=== PATIENT | male | born 1990 | race Caucasian/White ===

== ENCOUNTER 2018-09-27 06:01 | Inpatient (IN) ==
[2018-09-27] MEDS ORDERED: Mag Hydrox/Al Hydrox/Simeth 30 ML UDC PO PRN (06:51)
[2018-09-27] MEDS ORDERED: *HR* LORazepam 1 MG TABLET PO PRN (06:51)
[2018-09-27] MEDS ORDERED: hydrOXYzine pamoate 25 MG CAPSULE PO PRN (06:51)
[2018-09-27] MEDS ORDERED: Ibuprofen 400 MG TABLET PO PRN (06:51)
[2018-09-27] MEDS ORDERED: *HR* LORazepam 2 MG/ML VIAL IM PRN (06:51)
[2018-09-27] MEDS ORDERED: traZODone 50 MG TABLET PO PRN (06:51)
[2018-09-27] MEDS ORDERED: Haloperidol Lactate 5 MG/ML VIAL IM PRN (06:51)
[2018-09-27] MEDS ORDERED: MOM Conc 10 ML UD.LIQ PO PRN (06:51)
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
--- NOTE | 2018-09-28 13:32 | Psychiatry Progress Note ---
Date of Encounter: 09/28/18 Time of Encounter: 12:50 Subjective Interval history: Patient states eh is "much better". He denies any SI and doesn't think that he ever was serious about it. He talks about cutting on himself previously and how it used to be a bad habit of how he would deal with stress. He just reverted back to that habit. He states that there is stress at home, but things are getting better regarding his home life and family. He has no desire to take medications, but does want a therapist to work through some issues. He does not feel depressed, but more anxious. He is bored here on the unit and does not find it productive in him dealing with his issues. I discussed with him that he may want to try some medications while he was here, and the alternative purpose of him being here is to monitor him and keep him safe. Discussed wanting and needing to touch base with his and talk about safety issues at home and her concerns. Results - Vital Signs Vital Signs: Temp Pulse Resp BP Pulse Ox 98 F 93 14 131/90 98 09/28/18 09:00 09/28/18 09:00 09/28/18 09:00 09/28/18 09:00 09/28/18 09:00 Assessment and Plan (1) Anxiety Current visit: Yes Status: Acute Plan: Continue hospitalization, Close observation, Suicide Precautions per unit protocol, Encourage participation in unit milieu, Monitor appetite Risks, benefits, side effects, alternatives discussed w/pt: Yes (encouraged prn medication; vistaril) Patient agreeable to treatment: Yes (He will consider, but wants to go home. Misses his family) (2) Borderline personality disorder Current visit: Yes Status: Acute Plan: Continue hospitalization, Close observation Risks, benefits, side effects, alternatives discussed w/pt: Yes Patient agreeable to treatment: Yes Consult Discharge Plan - Plan Referrals: [facility] [Outside] (Per physical therapy nurse at [place] office, patient to be scheduled with Alta Liao for intake assessment. Please complete the [facility] Welcome Packet and drop it off at the front end mechanic of the location above. The physical therapy nurse will enter your information and schedule you with an appointment before you leave. Please also bring your hospital discharge paperwork and inform them you need to be referred to a prescriber to continue your medication. It is important to do this as soon as possible after your discharge so that you do not run out of medication. ) Psychiatry Exam - Constitutional Vitals: Temp Pulse Resp BP Pulse Ox 98 F 93 14 131/90 98 09/28/18 09:00 09/28/18 09:00 09/28/18 09:00 09/28/18 09:00 09/28/18 09:00 General appearance: age & developmentally appropriate, well-nourished - Musculoskeletal Gait: normal Station: stooped, relaxed Strength & Tone: normal for patient - Psychiatric Patient Orientation: Yes Person, Yes Time, Yes Place, Yes Circumstance Level of alertness: Alert Behavior: anxious (mildly) Psychomotor activity: Normal Eye Contact: Maintains Eye Contact Mood Description: Anxious (frustrated) Affect description: congruent with mood Speech Volume: Normal Speech pattern: normal rate, normal rhythm, normal tone, fluent Language & Vocabulary: consistent with education Thought Process: Intact, Logical, Linear, Goal Oriented Thought Content: Yes Suicidal ideation (resolved at this time) Attention Span Ability: Capable of Focused Attention, Capable of Sustained Attention Memory Description: Grossly Intact Patient Reliability: Reliable Historian Fund of knowledge: Yes abstraction ability Intelligence Estimate: Average Judgment: Fair Insight: Partial
--- NOTE | 2018-09-29 11:43 | Psychiatry Progress Note ---
Date of Encounter: 09/29/18 Time of Encounter: 11:15 Subjective Interval history: "I'm fine". Patient tells me that he tried the Vistaril last evening and it helped decrease his anxiety and settle his mood well. He thinks it would be helpful to take that on the outside and he would not feel tired or drugged out. He slept well last night, is interacting on the unit and worked with rec therapist today to have something more productive to do. We discussed how the Vistaril can help with his sleep issues too and he was on board with taking it. He denies any SI/HI. Talked briefly yesterday with his in a family session. He understands her concerns, but she told me that she feels safe with him coming home and that the family misses him. There are no safety issues from her standpoint. 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 And there is no way around him not using those in his occupation. Again, he denies having wanted to kill himself and just wants to get into therapy to deal with some personal issues, which his supports strongly. Results - Vital Signs Vital Signs: Temp Pulse Resp BP Pulse Ox 98.1 F 96 16 133/88 98 09/29/18 08:03 09/29/18 08:03 09/29/18 08:03 09/29/18 08:03 09/29/18 08:03 Assessment and Plan (1) Anxiety Current visit: Yes Status: Acute Plan: Continue hospitalization, Close observation Risks, benefits, side effects, alternatives discussed w/pt: Yes (Vistaril helpd greatly with his anxiety) Patient agreeable to treatment: Yes (Will follow up with outpatient counseling.) (2) Borderline personality disorder Current visit: Yes Status: Acute Risks, benefits, side effects, alternatives discussed w/pt: Yes Patient agreeable to treatment: Yes Consult Discharge Plan - Plan Referrals: [facility] [Outside] (Per radiology receptionist at [place] office, patient to be scheduled with Alta Liao for intake assessment. Please complete the [facility] Welcome Packet and drop it off at the front man of the location above. The radiology receptionist will enter your information and schedule you with an appointment before you leave. Please also bring your hospital discharge paperwork and inform them you need to be referred to a prescriber to continue your medication. It is important to do this as soon as possible after your discharge so that you do not run out of medication. ) Psychiatry Exam - Constitutional Vitals: Temp Pulse Resp BP Pulse Ox 98.1 F 96 16 133/88 98 09/29/18 08:03 09/29/18 08:03 09/29/18 08:03 09/29/18 08:03 09/29/18 08:03 General appearance: age & developmentally appropriate, well-nourished - Musculoskeletal Gait: normal Station: relaxed Strength & Tone: normal for patient - Psychiatric Patient Orientation: Yes Person, Yes Time, Yes Place, Yes Circumstance Level of alertness: Alert, Follows commands Behavior: calm, other (more cooperative and engaged today) Psychomotor activity: Normal Eye Contact: Maintains Eye Contact Mood Description: Euthymic/stable Affect description: congruent with mood Speech Volume: Normal Speech pattern: normal rate, normal rhythm, normal tone, fluent Language & Vocabulary: consistent with education Thought Process: Intact, Logical, Linear, Goal Oriented Attention Span Ability: Capable of Focused Attention, Capable of Sustained Attention Memory Description: Grossly Intact Patient Reliability: Reliable Historian Fund of knowledge: Yes abstraction ability Intelligence Estimate: Average Judgment: Good Insight: Partial
[2018-09-30 08:51] VITALS: BP 114/80
--- NOTE | 2018-09-30 08:55 | Discharge Summary ---
Date of Encounter: 09/30/18 Time of Encounter: 08:40 Diagnosis - Discharge Diagnosis (1) Anxiety Status: Acute (2) Borderline personality disorder Status: Acute Medications - Discharge Medications Prescriptions: hydrOXYzine pamoate [HydrOXYzine Pamoate] 25 mg PO TID PRN 30 Days #60 capsule PRN Reason: Anxiety hydrOXYzine pamoate [HydrOXYzine Pamoate] 25 mg PO TID PRN 30 Days #60 capsule 09/30/18 [Rx] Allergy/AdvReac Type Severity Reaction Status Date / Time No Known Allergies Allergy Verified 09/29/18 11:03 Provider Date of admission: 09/27/18 06:01 Psychiatry Exam - Constitutional Vitals: Temp Pulse Resp BP Pulse Ox 98.8 F 96 16 145/89 97 09/29/18 21:00 09/29/18 21:00 09/29/18 21:00 09/29/18 21:00 09/29/18 21:00 General appearance: age & developmentally appropriate - Musculoskeletal Gait: normal Station: relaxed Strength & Tone: normal for patient - Psychiatric Patient Orientation: Yes Person, Yes Time, Yes Place, Yes Circumstance Level of alertness: Alert Behavior: calm, cooperative Psychomotor activity: Normal Eye Contact: Maintains Eye Contact Mood Description: Euthymic/stable Affect description: congruent with mood Speech Volume: Normal Speech pattern: normal rate, normal rhythm, normal tone Language & Vocabulary: consistent with education Thought Process: Intact Attention Span Ability: Capable of Focused Attention Memory Description: Grossly Intact Patient Reliability: Reliable Historian Fund of knowledge: Yes abstraction ability Intelligence Estimate: Average Judgment: Good Insight: Full Hospital Course Hospital course: Mr. Wolfe is a 27 year old male who was admitted after cutting on himself due to a stressful situation in life and was having thoughts of other self harm. He had a history years ago of cutting but has not acted on it for an extended period. He calls it a "bad habit". He denies SI. He and his met with me and she is very supportive and he has a supportive family. He is gainfully employed and likes his job. He initially did not want to take any medication, but tried Vistaril 25 mg and found it to be very effective in controlling his anxiety. He is safe to go home. He wants to start seeing a therapist and dealing with the issue that causes him stress. The unit social research assistant has set him up with a therapy group in [place] for him to compete an intake. He will monitor him and make sure he sees the therapist and gets to appointments. His mood is now stable. He denies SI/HI/A/V hallucinations. He is sleeping well and eating fine. He has been participating on the unit as much as he could with what was available to him. Time spent discussing smoking cessation with patient: 3 to 10 minutes Does patient wish to continue nicotine replacement upon disc: No - Time Spent with Patient Total time spent providing and/or coordinating discharge services: 20 min Less than 30 minutes Assessment and Plan - Patient/Caregiver Discharge Instructions Activity: resume usual activities as tolerated Diet: regular diet - Follow [facility] (Per cloud infrastructure architect at [place] office, patient to be scheduled with Alta Liao for intake assessment. Please complete the [facility] Welcome Packet and drop it off at the it help desk analyst of the location above. The cloud infrastructure architect will enter your information and schedule you with an appointment before you leave. Please also bring your hospital discharge paperwork and inform them you need to be referred to a prescriber to continue your medication. It is important to do this as soon as possible after your discharge so that you do not run out of medication. ) Disposition: Home, Self-Care Quality - Multiple Antipsychotics Patient discharged on 2 or more antipsychotic medications: No Procedures - Procedures Procedures: Medication Management, Crisis Stabilization, Supportive Therapy
== END 2018-09-30 14:30 | disposition home or self-care (01) | DRG 885 ==
LOC: SUATTDRO 06:01 → MERGE 06:01 → 1ANU 06:01
PROVIDERS: ADMIT Psychiatry & Neurology Psychiatry; ATTEND Psychiatry & Neurology Psychiatry